=== PATIENT | female | born 1965 | race Caucasian/White ===

== ENCOUNTER 2020-04-14 19:53 | Emergency (ER) | payer BC ==
[~2020-04-14] VITALS: Ht 170.2 cm; Wt 86.2 kg
[2020-04-14 20:05] VITALS: Ht 170.2 cm; Wt 86.2 kg
[2020-04-14] MEDS ORDERED: AUGMENTIN 875-11 TAB PO (20:16)
[2020-04-14 20:54] VITALS: BP 125/77
== END 2020-04-14 20:55 | disposition home or self-care (01) ==
LOC: D.ER 19:53
DX: T16.1XXA Foreign body in right ear, initial encounter (principal); X58.XXXA Exposure to other specified factors, initial encounter; Y93.9 Activity, unspecified; Y92.9 Unspecified place or not applicable